=== PATIENT | male | born 1955 | race Caucasian/White ===

== ENCOUNTER 2016-07-04 14:18 | Emergency (ER) | payer BC ==
[2016-07-04 15:01] VITALS: BP 145/60
--- NOTE | 2016-07-04 15:28 | UC ---
Throat Pain/Nasal Nick HPI - HPI Summary HPI Summary: complaint of being sick intermittently since 04/30/2016 was sick for 2 weeks and treated with antibiotics-zithromax by PCP-treatment felt slightly better after treatment but then he began to have more nasal congestion and sinus pressure started to feel better than was visited by relatives who were sick for the last 3-4 days he has a cough and has coughing fits which have worsened productive cough with yellow sputum sinus pressure and occasional sore throat denies fever and chills denies feeling short of breath unless he has uncontrolled coughing denies chest pain, dizziness, palpitations, edema - History of Current Complaint Chief Complaint: UCGeneralIllness Stated Complaint: COUGH,CONGESTION Time Seen by Provider: 07/04/16 15:19 Hx Obtained From: Patient - Allergies/Home Medications Allergies/Adverse Reactions: Allergies Allergy/AdvReac Type Severity Reaction Status Date / Time Penicillins Allergy Severe Difficulty Verified 07/04/16 15:01 Breathing [place] Oil Allergy Oral Verified 07/04/16 15:01 Itching Bee Venom Allergy Swelling Verified 07/04/16 15:01 Peanut Oil Allergy Feet Verified 07/04/16 15:01 Swelling and Itching PMH/Surg Hx/FS Hx/Imm Hx Previously Healthy: Yes Endocrine History Of: Reports: Thyroid Disease - Not currently low Denies: Diabetes, Hyperthyroidism, Hypothyroidism, Dyslipidemia Cardiovascular History Of: Denies: Cardiac Disorders, Hypertension, Pacemaker/ICD, Myocardial Infarction , Congestive Heart Failure, Atrial Fibrillation, Deep Vein Thrombosis, Bleeding Disorders Respiratory History Of: Denies: COPD, Asthma, Bronchitis, Pneumonia, Pulmonary Embolism GI/ History Of: Reports: Gastroesophageal Reflux Denies: Ulcer, Gastrointestinal Bleed, Gall Bladder Disease, Kidney Stones, Diverticulitis, Renal Disease, Urosepsis Neurological History Of: Denies: TIA, CVA, Dementia, Seizures, Migraine Psychological History Of: Denies: Anxiety, Depression, Bipolar Disorder, Schizophrenia, Post Traumatic Stress Disorder Cancer History Of: Denies: Lung Cancer, Colorectal Cancer, Breast Cancer, Prostate Cancer, Cervical Cancer Other History Of: Negative For: HIV, Hepatitis C - Surgical History Surgical History: Yes Surgery Procedure, Year, and Place: SPHINCTER MUSCLE RELEASE. SKIN TAG EXCISIONS - Family History Known Family History: Negative: Cardiac Disease, Hypertension - Social History Alcohol Use: Rare Substance Use Type: None Smoking Status (MU): Former Smoker Type: Cigars Amount Used/How Often: 1 cigar once or twice a week Have You Smoked in the Last Year: Yes When Did the Patient Quit Smoking/Using Tobacco: 05/04 PPD for 30 Days Cessation Counseling: Patient Advised to Stop Review of Systems Constitutional: Negative Skin: Negative Eyes: Negative ENT: Nasal Discharge Respiratory: Cough Cardiovascular: Negative Gastrointestinal: Negative Genitourinary: Negative Motor: Negative Neurovascular: Negative Musculoskeletal: Negative Neurological: Negative Psychological: Negative All Other Systems Reviewed And Are Negative: Yes Physical Exam Triage Information Reviewed: Yes Appearance: No Pain Distress, Well-Nourished, Obese Vital Signs: Initial Vital Signs Temp 97.9 F 07/04/16 14:56 Pulse 88 07/04/16 14:56 Resp 18 07/04/16 14:56 BP 145/60 07/04/16 14:56 Pulse Ox 97 07/04/16 14:56 Vital Signs Reviewed: Yes Eyes: Positive: Conjunctiva Clear ENT: Positive: Pharyngeal erythema, Nasal congestion, Nasal drainage, TM bulging , Other: - maxillary and sinus tenderness. Negative: TM red Neck: Positive: Supple, No Lymphadenopathy Respiratory: Positive: Lungs clear, Normal breath sounds, No respiratory distress, No accessory muscle use, Decreased breath sounds - in bases Cardiovascular: Positive: RRR, No Murmur, Pulses Normal Abdomen Description: Positive: Nontender, Soft Bowel Sounds: Positive: Present Musculoskeletal: Positive: No Edema Neurological: Positive: Alert Psychological Exam: Normal Skin Exam: Normal Throat Pain/Nasal Course/Dx - Course Course Of Treatment: exam completed. x-ray consisitent with COPD. will treat for sinusitis and start albuterol COPD exacerbation followup with PCP - Differential Dx/Diagnosis Differential Diagnosis/HQI/PQRI: Sinusitis, Other - bronchitis, pneumonia Provider Diagnoses: COPDexacerbation, sinusitis Discharge - Discharge Plan Condition: Stable Disposition: HOME Prescriptions: Albuterol HFA INHALER* [Ventolin HFA Inhaler*] 2 puff INH Q4H PRN #1 mdi PRN Reason: Cough Clarithromycin TAB* [Biaxin TAB*] 500 mg PO BID #20 tab Spacer/Aerosol-Holding Chamber [Aerochamber Mv] 1 mis XX Q4HR #1 mis predniSONE TAB* [Deltasone TAB*] 50 mg PO DAILY #5 tab Patient Education Materials: COPD (Chronic Obstructive Pulmonary Disease) (ED) , Sinusitis (ED) Referrals: James Bangura MD [Primary Care Provider] - Additional Instructions: Please take antibiotic as directed Use your albuterol inhaler every 4-6 hours when needed for wheezing, shortness of breath or uncontrolled coughing. Increase fluids and rest Take acetaminophen or ibuprofen for fever or pain Please review your discharge instructions. please call your primary care provider for followup proceed to the emergency room if your symptoms worsen
--- NOTE | 2016-07-04 16:33 | RAD ---
INDICATION: Cough. COMPARISON: Comparison is made with a prior chest x-ray study from January 12, 2011. TECHNIQUE: Dual-energy PA and lateral views of the chest were obtained. FINDINGS: The heart is within normal limits in size. Mediastinal and hilar contours appear within normal limits. The lungs are hyperinflated and clear with flattening of the diaphragms consistent with chronic obstructive pulmonary disease. No pleural effusion is seen. IMPRESSION: FINDINGS CONSISTENT WITH COPD, NO EVIDENCE FOR ACUTE FINDING.
== END 2016-07-04 16:45 | disposition home or self-care (01) ==
LOC: UCCORT 14:18
DX: J44.1 Chronic obstructive pulmonary disease with (acute) exacerbation (principal); J32.9 Chronic sinusitis, unspecified; Z88.0 Allergy status to penicillin; Z87.891 Personal history of nicotine dependence
CPT/HCPCS: 71020; 99212; G0463

== ENCOUNTER 2017-04-15 18:31 | Emergency (ER) | payer BC ==
[2017-04-15 18:59] VITALS: BP 156/98
[2017-04-15] MEDS ORDERED: Ondansetron ODT TAB* 4 MG PO ONE ×2 (19:14→19:43)
--- NOTE | 2017-04-15 19:34 | UC ---
Abdominal Pain Male HPI - HPI Summary HPI Summary: Pt c/o sudden onset of abdominal pain, nausea, vomiting X 1 day. Pt reports unable to tolerate PO food/fluids. Pt is voiding, denies diarrhea, but states passing flatus. - History of Current Complaint Chief Complaint: UCGI Stated Complaint: VOMITING Time Seen by Provider: 04/15/17 19:08 Hx Obtained From: Patient Onset/Duration: Sudden Onset, Lasting Hours, Still Present Timing: Constant Severity Initially: Mild Severity Currently: Mild Location: Diffuse Radiates: No Character: Colicy, Cramping Aggravating Factor(s): Food Alleviating Factor(s): Nothing Associated Signs And Symptoms: Positive: Decreased Appetite, Nausea, Vomiting - Allergies/Home Medications Allergies/Adverse Reactions: Allergies Allergy/AdvReac Type Severity Reaction Status Date / Time Penicillins Allergy Severe Difficulty Verified 07/04/16 15:01 Breathing [place] Oil Allergy Oral Verified 07/04/16 15:01 Itching Bee Venom Allergy Swelling Verified 07/04/16 15:01 Peanut Oil Allergy Feet Verified 07/04/16 15:01 Swelling and Itching Home Medications: Home Medications Naltrexone HCl-Bupropion HCl [Contrave 8-90 mg] 2 tab PO 0800,2100 04/15/17 [ History Confirmed 04/15/17] Saw [place] (Serenoa Repens) [Saw [place]] 500 mg PO DAILY 04/15/17 [History Confirmed 04/15/17] PMH/Surg Hx/FS Hx/Imm Hx Previously Healthy: Yes - obesity Other History Of: Negative For: HIV, Hepatitis C - Surgical History Surgical History: Yes Surgery Procedure, Year, and Place: SPHINCTER MUSCLE RELEASE. SKIN TAG EXCISIONS - Family History Known Family History: Negative: Cardiac Disease, Hypertension - Social History Lives: With Family Alcohol Use: Rare Substance Use Type: None Smoking Status (MU): Former Smoker Type: Cigars Amount Used/How Often: 1 cigar once or twice a week Have You Smoked in the Last Year: Yes When Did the Patient Quit Smoking/Using Tobacco: 1996 - 05/04 PPD for 30 Days Review of Systems Constitutional: Chills, Fatigue Skin: Negative Eyes: Negative ENT: Negative Respiratory: Negative Cardiovascular: Negative Gastrointestinal: Abdominal Pain, Vomiting, Nausea Genitourinary: Negative Motor: Negative Neurovascular: Negative Musculoskeletal: Negative Neurological: Headache Psychological: Negative Is Patient Immunocompromised?: No All Other Systems Reviewed And Are Negative: Yes Physical Exam Triage Information Reviewed: Yes Appearance: Ill-Appearing, Obese Vital Signs: Initial Vital Signs Temp 98.4 F 04/15/17 18:54 Pulse 98 04/15/17 18:54 Resp 16 04/15/17 18:54 BP 156/98 04/15/17 18:54 Pulse Ox 96 04/15/17 18:54 Vital Signs Reviewed: Yes ENT Exam: Normal Neck exam: Normal Respiratory Exam: Normal Cardiovascular Exam: Normal Abdomen Description: Positive: Nontender Bowel Sounds: Positive: Other: - unable to hear due to obesity Musculoskeletal Exam: Normal Neurological Exam: Normal Psychological Exam: Normal Skin Exam: Normal Abd Pain Male Course/Dx - Differential Dx/Clinical Impression Differential Diagnosis/HQI/PQRI: Bowel Obstruction, Other - gastroenteritis Provider Diagnoses: gastroenteritis Discharge - Discharge Plan Condition: Stable Disposition: HOME Prescriptions: Ondansetron TAB* [Zofran 4 MG Tab*] 4 mg PO Q6H PRN #28 tab PRN Reason: Nausea Patient Education Materials: Gastroenteritis (ED) Referrals: James Bangura MD [Primary Care Provider] - If Needed
[2017-04-15] MEDS ORDERED: Ondansetron ODT TAB* 4 MG ONE (20:05)
== END 2017-04-15 20:12 | disposition home or self-care (01) ==
LOC: UCCORT 18:31
DX: K52.9 Noninfective gastroenteritis and colitis, unspecified (principal); Z87.891 Personal history of nicotine dependence
CPT/HCPCS: 99212; A9270-GY; G0463

== ENCOUNTER 2019-06-29 14:24 | Emergency (ER) | payer BC ==
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
--- OUTSIDE RECORDS SUMMARY | 2019-06-29 14:30 | XMS REPORT | Summary of Care ---
:1955 Author Organization [facility] Address [address] [place] [address] Care Team Providers Name Role Phone James Bangura MD Primary Care Provider Reason for Visit Reason Comments Follow-up Encounter Details Date Type Department Care Team Description 05/30/2019 Office Visit [facility] RAD[facility] Juan Amin, Prostate cancer ONCOLOGY (Primary Dx) [address] [facility] [address] [facility] [address] [place] [phone] Allergies Active Allergy Reactions Severity Noted Date Comments [place]-In Food 06/30/2018 Bee Venom 06/30/2018 Penicillins High 05/04/2018 documented as of this encounter (statuses as of 06/28/2019) Medications Medication Sig Dispensed Refills Start Date [...] 10:43 AM Celecoxib 200 MG Oral Capsule TK ONE C PO Q 0 05/14/2019 Active (CeleBREX) Tamsulosin HCl 0.4 MG Oral Capsule Take 0.4 mg by mouth daily 0 Active (FLOMAX) documented as of this encounter (statuses as of 06/28/2019) Active Problems Problem Noted Date Prostate cancer 05/04/2018 Cancer Staging: Clinical stage from 07/19/2018: Stage IIIC (cT1c, cN0, cM0, PSA : 5, Grade Group: 5) - Signed by Juan Amin MD on 07/22/2018 documented as of this encounter (statuses as of 06/28/2019) Social History Tobacco Use Types Packs/Day Years [...] Sign Reading Time Taken Comments Blood Pressure 159/92 05/30/2019 10:40 AM EST Pulse 88 05/30/2019 10:40 AM EST Temperature - - Respiratory Rate - - Oxygen Saturation 95% 05/30/2019 10:40 AM EST Inhaled Oxygen Concentration - - Weight - - Height - - Body Mass Index - - documented in this encounter Progress Notes Linh Narayan NP - 05/30/2019 10:30 AM EST Radiation Oncology Outpatient Follow-up Visit Report Subjective: Diagnosis and Stage: very high risk prostate cancer, [place] 4+5, iPSA 5, cT1c stage IIIC Prior Radiation Therapy: 1. Pelvis to a dose of 4500 cGy and Prostate boost to a dose of 7740 cGy treated in 180 cGy fractions, 43 fractions total, with concurrent ADT and abiraterone - completed 10/03/18 2. Lupron and zytiga and prednisone ECOG Performance Status: (1) Restricted in physically strenuous activity, ambulatory and able to do work of light nature History of Present Illness: David Scott is a 63 y.o. male with very high risk prostate cancer. He has elected for treatment with definitive RT with neoadjuvant, concurrent, and adjuvant ADT with abiraterone, plan for 2 total years of ADT. He completed RT on 10/03/18. He returns today for follow-up after completing radiation therapy. He feels very well today. He remains on Zytiga and Lupron. His only complaint is hot flashed. He thinks his urinary habits improved with treatment and IPSS is 13/35 , Previously 11/35. He continues on one flomax. EDA is NA. Bowel habits are mostly back to normal, occasional loose stool. No blood in urine or stool. No bone pain. He follows with Dr. Greenberg who ordered bone scan and Pelvic/Abd CT on 05/05/2001 which was benign. No other complaints. A complete review of systems was performed and is negative with the exception of the pertinent positives noted above in the HPI. Medications: Current Outpatient Medications Medication Sig Dispense Refill Abiraterone Acetate (ZYTIGA) 250 MG TABS tablet Take 4 tablets by mouth daily 120 tablet 6 Celecoxib 200 MG Oral Capsule (CeleBREX) TK ONE C PO Q citalopram (CELEXA) 20 MG tablet Take 20 mg by mouth daily levocetirizine (XYZAL) 5 MG tablet Take 5 [...] Tamsulosin HCl 0.4 MG Oral Capsule (FLOMAX) Take 0.4 mg by mouth daily Tamsulosin HCl 0.4 MG Oral Capsule (FLOMAX) TAKE 1 CAPSULE BY MOUTH TWICE DAILY (Patient taking differently: 0.4 mg Swallow whole. Do not crush, chew or open.) 60 capsule 5 No current facility-administered medications for this visit. Allergies: Allergies reviewed. Allergies Allergen Reactions Penicillins [place]-In Food Bee Venom Patient's medications, allergies, past medical, surgical, social and family histories were reviewed and updated as appropriate. Objective: Wt Readings from Last 3 Encounters: 05/26/19 (!) 185.3 kg (408 lb 9.6 oz) 02/17/19 (!) 182.3 kg (402 lb) 11/11/18 (!) 182.3 kg (402 lb) Vitals - 1 value per visit 02/17/2019 05/26/2019 05/30/2019 SYSTOLIC 158 146 159 DIASTOLIC 87 84 92 PULSE 85 77 88 TEMPERATURE 98.1 98 - RESPIRATIONS 16 16 - Weight (kg) 182.346 kg 185.34 kg - SPO2 96 95 95 PAIN SCALE - SCORE 0 5 4 PAIN SCALE - LOCATION - CHEST BACK PAIN SCALE - COMMENT - - - Physical Exam: General Exam: in no acute distress HEENT: normocephalic, atraumatic. No cervical or supraclavicular lymphadenopathy. Oral cavity moist. Respiratory: non-labored breathing, clear to auscultation bilaterally Cardiovascular: Regular rate and rhythm Extremities: no peripheral edema, no digital clubbing Musculoskeletal: no point tenderness over spine or hips Neurological: Alert and oriented Psychiatric: mood and affect congruent. Insight and judgement intact Pertinent Interval Imagin05/05/2019 CT abd/pelvis : [facility] Impression: Unremarkable CT of the abdomen and pelvis 05/05/2019 bone scan: [facility] Degenerative changes. No evidence of metastatic disease Labs: PSA 05/26/2019 <0.1 02/17/19 <o.1 11/11/18<0.1 Assessment & Plan: David Scott is a 63 y.o. male with very high risk prostate cancer. He has elected for treatment with definitive RT with neoadjuvant, concurrent, and adjuvant ADT with abiraterone, plan for 2 total years of ADT. He completed RT on 10/03/18. Clinically he is doing well without symptoms related to prior radiation treatment or those concerning for disease recurrence. We encouraged him to continue follow up with Dr. Greenberg. Most recent imaging was benign and PSA is undetectable. We would like him to return for follow up in 6 months. We wouldbe happy to see him sooner if there are any additional questions or concerns. The patient was seen, examined and counseled under the supervision of attending physician, Juan Amin MD. Linh Narayan NP Radiation Oncology I saw and evaluated David Scott. Imaging was reviewed. Patient is stable with excellent PSA controlElectronically signed by Juan Amin MD at 06/28 8:11 AM ESTdocumented in this encounter Plan of Treatment Date Type Specialty Care Team Description 08/25/2019 Office Visit Hematology and Oncology Mikaela Greenberg MD [address] [place] [address] 12/05/2019 Office Visit Radiation Oncology Juan Amin MD [address] [facility] 1st [place] [address] Health Maintenance Due Date Last Done Comments Hepatitis C Screening (B. 1955 [id number]) MMR Vaccines (1 of 1 - Standard [...] this topic documented as of this encounter Results Not on filedocumented in this encounter Visit Diagnoses Diagnosis Prostate cancer - Primary Malignant neoplasm of prostate documented in this encounter
--- OUTSIDE RECORDS SUMMARY | 2019-06-29 14:30 | XMS REPORT | Continuity of Care Document ---
:1955 External Reference #:[id number] Author Name EZEQUIEL Hardy (transmitted by agent of provider Mahnaz Thomas) Address [address] [place] [address] Care Team Providers Name Role Phone [facility], Care Team Information Unmanned Equipment Operator [phone] Suzanne William RPA - Medical Care Team Information Unmanned Equipment Operator Garcia Jennings M.D. - Urology Care Team Information Unmanned Equipment Operator Flip Zapata MD - Allergy & Care Team Information Unmanned Equipment Operator [phone] Immunology Mikaela Greenberg MD - Medical Oncology Care Team Information Unmanned Equipment Operator [phone] Cherri Estrada MD - Care Team Information Unmanned Equipment Operator [phone] Ophthalmology Solomon Healy MD - Otolaryngology Care Team Information Unmanned Equipment Operator Problems Active Problems Provider Date Malignant tumor of prostate Onset: 05/03/2018 Note: adenocarcinoma 04/2018 Anxiety state Onset: 05/03/2018 Obesity Onset: 05/03/2018 Bilateral carpal tunnel syndrome Onset: 05/03/2018 Note: (-) EMG Degenerative joint disease involving multiple joints Onset: 04/01/2012 Note: Cervical spine, A-C joint, shoulder, knee, ankles Edema Onset: 04/01/2012 Hypothyroidism Onset: 04/01/2012 Note: ~2008 Vitamin D deficiency Onset: 04/01/2012 Internal hemorrhoids EZEQUIEL Hardy Onset: 06/09/2019 Obstructive sleep apnea syndrome EZEQUIEL Hardy Onset: 06/09/2019 Note: tested 2015 Bilateral cataracts Suzanne William, PA Onset: 06/09/2019 Moderate persistent asthma Suzanne William, PA Onset: 06/09/2019 Benign prostatic hypertrophy with outflow Suzanne Richland, PA Onset: 2019 obstruction Allergy to nut Suzanne William, PA Onset: 06/09/2019 Note: almonds and peanuts 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 venom Suzanne William, PA Onset: 06/09/2019 Labile blood pressure Suzanne William, PA Onset: 06/09/2019 Social History Type Date Description Comments Sex Unknown Tobacco Use Start: Unknown End: Former Cigarette Smoker ETOH Use Rarely consumes alcohol Recreational Drug Use Never Used Drugs Tobacco Use Start: Unknown End: Patient is a former cigaretts Unknown smoker Tobacco Use Start: Unknown Patient is a current cigars 2-3 a week smoker, smokes some days Smoking Status Reviewed: 06/28/19 Patient is a current cigars 2-3 a week smoker, smokes some days Allergies, Adverse Reactions, Alerts Active Allergies Reaction Severity Comments Date Almonds 05/06/2018 Peanut Free Text 05/06/2018 Bee Sting Facial swelling Severe 05/06/2018 Penicillin Free Text 05/06/2018 Medications Active Medications SIG Qnty Indications Ordering Date Provider Celecoxib 1 by mouth every 30caps M50.00 James 04/17/2019 200mg Capsules day MD Willem Abiraterone Acetate 4 tabs by mouth Mikaela Greenberg, 05/03/2018 250mg every day Tablets Prednisone 1 tab by mouth Mikaela Greenberg, 05/03/2018 5mg Tablets every day Lupron Depot (3-Month) per oncology Mikaela Greenberg, 05/03/2018 22.5mg Kit Citalopram Hydrobromide 1 by mouth every 30tabs F32.9 James 04/13/2018 dio Bangura MD 20mg Tablets Levothyroxine Sodium 1 by mouth every 30tabs E03.9 James 08/26/2015 50mcg day MD Willem Tablets Levocetirizine 1 every day as Benny, Dihydrochloride needed MD Flip 5mg Tablets Tamsulosin HCL 1 cap by mouth at Mikaela Greenberg, 0.4mg bedtime MD Capsules Albuterol Sulfate HFA use 2 puffs every Zapata, 4 hours if needed MD Flip 108(90Base) mcg/Act for shortness of Aerosol breath History Medications Meclizine HCL 1 pill twice a 30tabs R42 James Bangura, 03/24/2019 - day if too 06/09/2019 12.5mg Tablets sedating reduce to one pill at bedtime Immunizations CPT Code Status Date Vaccine Lot # [id number] Given 12/14/2018 Tdap - Tetanus/Diptheria/Acellular Pertussis 89510 Given 01/17/2013 Tdap - Tetanus/Diptheria/Acellular Pertussis 55124 Given 01/17/2013 Tdap - Tetanus/Diptheria/Acellular Pertussis 82954 Given 01/17/2013 Influenza Virus 3Yrs & Over 39011 Given 03/11/2012 Influenza Virus 3Yrs & Over 12944 Given 01/30/2011 Influenza Virus 3Yrs & Over 91725 Given 02/12/2010 Influenza Virus 3Yrs & Over 38632 Given 03/08/2009 Administration Swine Flu Shot 27750 Given 02/01/2009 Influenza Virus 3Yrs & Over 20303 Given 05/26/2008 Tdap - Tetanus/Diptheria/Acellular Pertussis 36386 Given 04/04/2008 Influenza Virus 3Yrs & Over 58720 Given 04/23/2005 Influenza Virus 3Yrs & Over 32524 Given 05/23/2004 Influenza Virus 3Yrs & Over Vital Signs Date Vital Result Comment 06/28/2019 10:21am Weight 407.00 lb Heart Rate 92 /min BP Systolic 122 mmHg BP Diastolic 74 mmHg Respiratory Rate 18 /min O2 % BldC Oximetry 95 % room air 04/17/2019 12:02pm Weight 410.00 lb BP Systolic 140 mmHg BP Diastolic 76 mmHg Results Test Acquired Date Facility Test Result H/L Range Note Ua Routine 06/28/2019 [facility] Ua Specific [place] 1.000 Ua PH 6.0 Ua Color yellow Ua Appera clear Ua WBC neg Ua Protein neg Ua Glucose neg Ua Ketones neg Ua Bilirubin neg Ua Urobilinogen neg Ua Nitrite neg Ua Occult Blood neg Procedures Date Code Description Status 06/01/2018 950633460 Diabetic Retinal Eye Exam Completed 07/01/2010 [id number] Colonoscopy Completed Medical Devices Description No Information Available Encounters Type Date Location Provider Dx Diagnosis Office Visit 04/17/2019 [facility] James M50.00 Cervical disc 11:45a MD Willem disorder with myelopathy, unsp cervical region Office Visit 03/24/2019 [facility] James F33.1 Major depressive 10:30a MD Willem disorder, recurrent, moderate R42 Dizziness and giddiness E03.9 Hypothyroidism, unspecified Office Visit 12/27/2018 10:00a [facility] Primary James Bangura F33.1 Major depressive Care disorder, recurrent, moderate J44.9 Chronic obstructive pulmonary disease, unspecified M25.511 Pain in right shoulder Assessments Date Code Description Provider 06/28/2019 E03.9 Hypothyroidism, unspecified EZEQUIEL Hardy 06/28/2019 M25.50 Pain in unspecified joint EZEQUIEL Hardy 04/17/2019 M50.00 Cervical disc disorder with myelopathy, James Bangura MD unspecified cervical region 03/24/2019 F33.1 Major depressive disorder, recurrent, James Bangura MD moderate 03/24/2019 R42 Dizziness and giddiness James Bangura MD 03/24/2019 E03.9 Hypothyroidism, unspecified James Bangura MD 12/27/2018 F33.1 Major depressive disorder, recurrent, James Bangura MD moderate 12/27/2018 J44.9 Chronic obstructive pulmonary disease, James Bangura MD unspecified 12/27/2018 M25.511 Pain in right shoulder James Bangura MD Plan of Treatment Future Appointment(s):09/28/2019 11:30 am - EZEQUIEL Hardy at [facility]06/28/2019 - Suzanne William PAE03.9 Hypothyroidism, unspecifiedNew Labs: TSH (Thyroid Stim Horm), Ordered: 06/28/19Free T4 (Free Thyroxine), Ordered: yroid Autoantibodies Screen, Ordered: 06/28/19Vitamin D Total 25(Oh), Ordered: 06/28/19Comments:Current supplementation: LT 50mcg fjbnoA92.50 Pain in unspecified jointNew Labs:Arthritis Panel, Ordered: 06/28/19C Reactive Protein, Ordered: 06/28/19Lyme Screen W/ Reflex To WB, Ordered: 06/28/19 Functional Status Description No Information Available Mental Status Description No Information Available Referrals Description No Information Available
--- OUTSIDE RECORDS SUMMARY | 2019-06-29 14:30 | XMS REPORT | Continuity of Care Document ---
:1955 External Reference #:[id number] Author Name Marlene Obrien PA Address [address] [facility] [place] [address] Care Team Providers Name Role Phone Corine Calderon PA - Physician Education Dean Care Team Information Client Technologies Analyst [phone] Problems Active Problems Provider Date Disorder of skin and/or Flip Karimi M.D. Onset: 03/31/2012 subcutaneous tissue Arthralgia of the upper arm Latosha Rees MD Onset: 03/15/2018 Wrist joint pain Latosha Rees MD Onset: 03/15/2018 Joint pain in right hand Latosha Rees MD Onset: 03/15/2018 Joint pain in left hand Latosha Rees MD Onset: 03/15/2018 Skin sensation disturbance Latosha Rees MD Onset: 03/15/2018 Benign prostatic hyperplasia with Garcia Jennings M.D. Onset: 03/21/2018 lower urinary tract symptoms Raised prostate specific antigen Garcia Jennings M.D. Onset: 03/21/2018 Malignant tumor of prostate Garcia Jennings M.D. Onset: 04/11/2018 Closed fracture of surgical neck of Marlene Obrien PA Onset: 12/14/2018 humerus Fracture of surgical neck of Marlene Obrien PA Onset: 02/21/2019 humerus Localized, primary osteoarthritis Marlene Obrien PA Onset: 02/21/2019 Social History Type Date Description Comments Sex Unknown Tobacco Use Start: Unknown End: Former Cigarette Smoker Unknown Tobacco Use Start: Unknown Currently Smokes an Occasional Cigar Smoking Status Reviewed: 04/18/19 Currently Smokes an Occasional Cigar ETOH Use Rarely consumes alcohol Tobacco Use Start: Unknown End: Patient is a former quit 21 years ago Unknown smoker but smokes 1 cigar a week Recreational Drug Use Denies Drug Use Allergies, Adverse Reactions, Alerts Active Allergies Reaction Severity Comments Date Penicillin 03/23/2012 Bee Sting 03/23/2012 Peanut Free Text 01/27/2018 Penicillin Free Text 03/11/2012 Almonds 03/23/2012 Medications Active Medications SIG Qnty Indications Ordering Date Provider Percocet 1 by mouth every 6 15tabs Fraser, 12/14/2018 5-325mg hour as needed pain MD Judi Tablets Naproxen take one tablet by 60tabs Other Provider 03/21/2018 500mg Tablets mouth twice a day Tamsulosin HCL 1 by mouth every day 30caps Dick, 03/21/2018 0.4mg at bedtime Cherelle Zelaya Capsules Levothyroxine Sodium 1 po qd 30tabs Unknown 0.5mg Tablets Citalopram TK 1 T PO qd Unknown Hydrobromide 20mg Tablets Abiraterone Acetate 4 daily Unknown 250mg Tablets Prednisone 1 daily Unknown 5mg Tablets Levocetirizine 1 daily Fenstermacher, Dihydrochloride Laura S, RPA-C 5mg Tablets Epinephrine Inject Unknown 0.3mg/0.3ML Intramuscularly as Solution Auto-Inject Directed Proair HFA Inl 2 PFS PO Q 4 H Unknown 108(90Base) prn mcg/Act Aerosol Lupron Injection every 3 mnths Unknown Medications Administered in Office Medication SIG Qnty Indications Ordering Provider Date Euflexxa 2mL prefilled syringe Marlene Obrien PA 03/06/2019 Injection Euflexxa 2mL prefilled syringe Marlene Obrien PA 02/28/2019 Injection Euflexxa 2mL prefilled syringe Marlene Obrien PA 02/21/2019 Injection Depomedrol 40mg/1cc Marlene Obrien PA 01/23/2019 (methylprednisolone acetate) Injection Immunizations Description No Information Available Vital Signs Date Vital Result Comment 04/18/2019 1:13pm BP Systolic 159 mmHg BP Diastolic 89 mmHg Body Temperature 96.4 F Heart Rate 80 /min Height 70 inches 5'10" [place] body weight in kilograms 75 kg O2 % BldC Oximetry 95 % 03/06/2019 1:36pm BP Systolic 179 mmHg BP Diastolic 92 mmHg Body Temperature 96.7 F Heart Rate 81 /min Height 70 inches 5'10" [place] body weight in kilograms 75 kg O2 % BldC Oximetry 95 % Results Description No Information Available Procedures Date Code Description Status 03/06/2019 Asp./Injection major joint Completed 02/28/2019 Asp./Injection major joint Completed 02/21/2019 34898 Radiology, Shoulder: Two Views (Sso) Completed 02/21/2019 Asp./Injection major joint Completed 01/23/2019 26005 Radiology,Humerus, Min. Two Views Completed 01/23/201918825 Asp./Injection major joint Completed 01/03/2019 52658 Radiology,Humerus, Min. Two Views Completed 12/26/2018 57626 Radiology,Humerus, Min. Two Views Completed 12/14/2018 74368 Humerus Fracture closed w/o manipulation Completed 05/03/2017 [id number] Colonoscopy Completed Medical Devices Description No Information Available Encounters Type Date Location Provider Dx Diagnosis Office Visit 04/18/2019 Orthopaedic Office Marlene Obrien, M17.11 Unilateral 1:00p PA primary osteoarthritis, right knee Office Visit 02/21/2019 Orthopaedic Office Marlene Obrien, S42.214D Unsp nondisp fx 10:00a PA of surg nk of r humjohnna, 7thD M17.11 Unilateral primary osteoarthritis, right knee Office Visit 01/23/2019 10:30a Orthopaedic Office Marlene Obrien, S42.214D Unsp nondisp PA fx of surg nk of r humjohnna, 7thD M17.11 Unilateral primary osteoarthritis, right knee Office Visit 12/14/2018 11:00a Orthopaedic Marlene Obrien, S42.231A 3-part Office PA fracture of surgical neck of right humerus, init W01.198A Fall same lev from slip/trip w strike agnst ot object, init Assessments Date Code Description Provider 04/18/2019 M17.11 Unilateral primary osteoarthritis, right Marlene Obrien PA knee 03/06/2019 M17.11 Unilateral primary osteoarthritis, right Marlene Obrien, EZEQUIEL knee 02/28/2019 M17.11 Unilateral primary osteoarthritis, right Marlene Obrien, PA knee 02/21/2019 S42.214D Unspecified nondisplaced fracture of Marlene Obrien PA surgical neck of right humerus, subsequent encounter for fracture with routine healing 02/21/2019 M17.11 Unilateral primary osteoarthritis, right MicahJohnnain EZEQUIEL knee 01/23/2019 S42.214D Unspecified nondisplaced fracture of Johnna Obrienin EZEQUIEL surgical neck of right humerus, subsequent encounter for fracture with routine healing 01/23/2019 M17.11 Unilateral primary osteoarthritis, right MicahJohnnain, EZEQUIEL knee 01/03/2019 S42.214D Unspecified nondisplaced fracture of MicahJohnnain, EZEQUIEL surgical neck of right humerus, subsequent encounter for fracture with routine healing 12/26/2018 S42.214D Unspecified nondisplaced fracture of DixonAnabell , [facility] surgical neck of right humerus, subsequent encounter for fracture with routine healing 12/26/2018 S42.214A Unsp nondisp fx of surgical neck of DixonAnabell, [facility] right humerus, init 12/14/2018 S42.231A 3-part fracture of surgical neck of Marlene Obrien PA right humerus, initial encounter for closed fracture 12/14/2018 W01.198A Fall on same level from slipping, Marlene Obrien PA tripping and stumbling with subsequent striking against other object, initial encounter Plan of Treatment No Information Available Functional Status Functional Condition Comment Date Status Standard cane is used to ambulate Active Mental Status Description No Information Available Referrals Description No Information Available
[2019-06-29 15:11] VITALS: BP 155/79
--- NOTE | 2019-06-29 16:34 | UC ---
Respiratory Complaint HPI - HPI Summary HPI Summary: 63yo male presenting with "chest congestion" x1 month but worsening for the last 2 days. Patient states that cough is productive only in the morning. Notes sob with coughing fits. Denies wheezing. Denies fever, chills, and body aches. Denies n/v. Normal appetite. Denies h/o asthma and COPD. Non smoker. States he had bronchitis last year for almost 2 months and "this feels like that." PMHx significant for htn and prostate cancer for which he is currently taking prednisone daily. - History of Current Complaint Chief Complaint: UCRespiratory Stated Complaint: CHEST CONGESTION/SOB/COUGH Hx Obtained From: Patient Pain Intensity: 0 Pain Scale Used: 0-10 Numeric - Allergies/Home Medications Allergies/Adverse Reactions: Allergies Allergy/AdvReac Type Severity Reaction Status Date / Time MS Penicillins [Penicillins] Allergy Severe Difficulty Verified 07/04/16 15:01 Breathing MS [place] Oil [[place] Oil] Allergy Oral Verified 07/04/16 15:01 Itching MS Bee Venom [Bee Venom] Allergy Swelling Verified 07/04/16 15:01 MS Peanut Oil [Peanut Oil] Allergy Feet Verified 07/04/16 15:01 Swelling and Itching Home Medications: Home Medications Levothyroxine TAB* [Synthroid 25 MCG TAB*] 25 mcg PO DAILY 11/18/15 [History Confirmed 06/29/19] Abiraterone Acetate [Zytiga] 2,000 mg PO DAILY 06/29/19 [History Confirmed 06/29] Albuterol HFA INHALER* [Ventolin HFA Inhaler*] 1 puff INH Q4H PRN 06/29/19 [ History Confirmed 06/29/19] Benzonatate CAP* [Tessalon 100 MG CAP*] 100 mg PO TID PRN #21 cap 06/29/19 [Rx] Citalopram TAB* [CeleXA TAB*] 40 mg PO DAILY 06/29/19 [History Confirmed ] Levocetirizine Dihydrochloride [Levocetirizine Dihydrochl] 5 mg PO DAILY [History Confirmed 06/29/19] Tamsulosin CAP* [Flomax CAP*] 0.4 mg PO DAILY 06/29/19 [History Confirmed ] predniSONE 10 mg TAB [Deltasone 10 MG TAB*] 10 mg PO DAILY 06/29/19 [History Confirmed 06/29/19] PMH/Surg Hx/FS Hx/Imm Hx Endocrine History: Hypothyroidism Cardiovascular History: Hypertension Cancer History: Prostate Cancer Other History Of: Negative For: HIV, Hepatitis C - Surgical History Surgical History: Yes Surgery Procedure, Year, and Place: SPHINCTER MUSCLE RELEASE. SKIN TAG EXCISIONS - Family History Known Family History: Negative: Cardiac Disease, Hypertension - Social History Alcohol Use: Rare Substance Use Type: None Smoking Status (MU): Former Smoker Type: Cigars Amount Used/How Often: 1 cigar once or twice a week Have You Smoked in the Last Year: Yes When Did the Patient Quit Smoking/Using Tobacco: 1996 - 05/04 PPD for 30 Days Review of Systems All Other Systems Reviewed And Are Negative: Yes Constitutional: Positive: Negative Respiratory: Positive: Shortness Of Breath - with coughing, Cough Cardiovascular: Positive: Negative Gastrointestinal: Positive: Negative Musculoskeletal: Positive: Negative Neurological/Mental Status: Positive: Negative Physical Exam - Summary Physical Exam Summary: Vital Signs Reviewed: Yes A+Ox3, no distress, obese, well-appearing Eyes: Conjunctiva Clear ENT: Hearing grossly normal, TM x 2 clear, moist, uvula midline, no exudate, no erythema Neck: Positive: Supple Respiratory: Positive: No respiratory distress, No accessory muscle use + CTA throughout no w/r Cardiovascular: RRR nl s1, s2 no m/r Musculoskeletal Exam: BERG x 4 without difficulty Neurological: Positive: Alert Psychological: Positive: age appropriate behavior Skin: Positive: no rash, no ecchymosis Vital Signs: Initial Vital Signs Temp 97.6 F 06/29/19 15:04 Pulse 75 06/29/19 15:04 Resp 22 06/29/19 15:04 BP 155/79 06/29/19 15:04 Pulse Ox 96 06/29/19 15:04 Respiratory Course/Dx - Course Course Of Treatment: Educated patient on acute bronchitis and average duration of symptoms. I provided patient with prescription for tesslon perles. I offered patient inhaler but he states he has one at home that he uses "whenever he needs it." Instructed to follow up with pcp if symptoms persist and to go to ED with any new or worsening symptoms. Patient voiced understanding and agreed with treatment plan. - Differential Dx/Diagnosis Differential Diagnosis/HQI/PQRI: Asthma, Bronchitis Provider Diagnosis: Acute bronchitis Discharge ED - Sign-Out/Discharge Documenting (check all that apply): Patient Departure All imaging exams completed and their final reports reviewed: No Studies - Discharge Plan Condition: Stable Disposition: HOME Prescriptions: Benzonatate CAP* [Tessalon 100 MG CAP*] 100 mg PO TID PRN #21 cap PRN Reason: Cough Patient Education Materials: Acute Bronchitis (ED), Bronchospasm (ED) Referrals: Suzanne William PA [Primary Care Provider] - If Needed Additional Instructions: Take tesslon perles as directed. Use your inhaler as needed for shortness of breath. You may take an over the counter decongestant to help alleviate symptoms. Follow up with your primary care provider if symptoms not improved within 2 weeks. Go to the emergency room with any new or worsening symptoms. - Billing Disposition and Condition Condition: STABLE Disposition: Home - Attestation Statements Provider Attestation: This patient was not seen by me. I was available for consult. Chart reviewed. NALLELY
== END 2019-06-29 16:11 | disposition home or self-care (01) ==
LOC: UCCORT 14:24
DX: J20.9 Acute bronchitis, unspecified (principal); E03.9 Hypothyroidism, unspecified; I10 Essential (primary) hypertension; Z88.0 Allergy status to penicillin; Z91.018 Allergy to other foods; Z91.030 Bee allergy status; Z91.010 Allergy to peanuts; Z79.890 Hormone replacement therapy; Z79.899 Other long term (current) drug therapy; Z85.46 Personal history of malignant neoplasm of prostate; Z87.891 Personal history of nicotine dependence
CPT/HCPCS: 99212; G0463